=== PATIENT | male | born 1995 | race Caucasian/White ===

== ENCOUNTER 2019-11-05 15:40 | Emergency (ER) | payer SELFPAY ==
[2019-11-05 15:46] VITALS: BP 129/67
--- NOTE | 2019-11-05 16:01 | ED Physician Documentation ---
PD HPI Fall - Stated complaint Stated Complaint: RT SIDE PX - Chief complaint Chief Complaint: Trauma Ch/Bk - History obtained from History obtained from: Patient - History of Present Illness Mechanism of injury: Slipped ([place] fell and struck his right lateral ribs on the rounded part of a log. Has complained of pain in the area with coughing sneezing and deep breathing and certain movements. This was about a week ago and it still hurts.) Fall distance: Standing position Where injury occurred: Other (beach) Timing - onset: How many days ago (3) Injury(ies) location: Chest (right side lateral mid ribs) Associated symptoms: No: LOC, AMS, Weakness, Paresthesias Symptoms improve with: Other (did not try any meds). No: Ice Worsens with: Movement (he was trying to work today and hurting too much with lifting and pulling.), Palpation, Other (deep breathing) Similar symptoms before: Has not had sx before Recently seen: Not recently seen Review of Systems Constitutional: denies: Fever, Chills Nose: denies: Rhinorrhea / runny nose, Congestion Throat: denies: Sore throat Cardiac: reports: Chest pain / pressure (at injured area only). denies: Palpitations Respiratory: denies: Dyspnea, Cough GI: denies: Abdominal Pain, Nausea, Vomiting Skin: denies: Abrasion (s), Laceration (s) PD PAST MEDICAL HISTORY - Past Medical History Past Medical History: Yes Respiratory: None Neuro: None Endocrine/Autoimmune: None GI: GERD - Past Surgical History Past Surgical History: No - Present Medications Home Medications: Ambulatory Orders Medication Instructions Recorded Confirmed Hydrocodone/Acetaminophen [[place] 1 each PO Q6H PRN #20 tablet 11/05/19 5-325 Tablet] Naproxen 500 mg PO BID #20 tablet 11/05/19 - Allergies Allergies/Adverse Reactions: Allergies Allergy/AdvReac Type Severity Reaction Status Date / Time No Known Drug Allergies Allergy Verified 11/05/19 15:43 - Social History Does the pt smoke?: Yes Smoking Status: Current every day smoker Does the pt drink ETOH?: No Does the pt have substance abuse?: No Substance Use and Type: Marijuana - Immunizations Immunizations are current?: Yes - POLST Patient has POLST: No PD ED PE NORMAL - Vitals Vital signs reviewed: Yes - General General: Alert and oriented X 3, No acute distress (somewhat guarding trunk movement and deep breathing. ), Well developed/nourished - Neck Neck: Supple, no meningeal sign, No bony TTP - Cardiac Cardiac: RRR, No murmur - Respiratory Respiratory: Clear bilaterally, Other (right lateral chest tender at midaxillary area about ribs 6-8. No abrasions nor lacs. No bruising. ) - Abdomen Abdomen: Soft, Non tender Results - Vitals Vitals: Vital Signs - 24 hr 11/05/19 15:43 Temperature 36.5 C Heart Rate 50 L Respiratory 16 Rate Blood Pressure 129/67 O2 Saturation 99 - Rads (name of study) chest xray Radiology: Prelim report reviewed (lungs normal. no noted displaced fractures. ), See rad report PD MEDICAL DECISION MAKING - ED course Complexity details: reviewed results, considered differential, d/w patient Departure - Departure Disposition: 01 Home, Self Care Clinical Impression: Fall from slip, trip, or stumble Qualifiers: Encounter type: initial encounter Qualified Code(s): W01.0XXA - Fall on same level from slipping, tripping and stumbling without subsequent striking against object, initial encounter Contusion of rib Qualifiers: Encounter type: initial encounter Laterality: right Qualified Code(s): S20.211A - Contusion of right front wall of thorax, initial encounter Condition: Stable Record reviewed to determine appropriate education?: Yes Instructions: ED Contusion Rib Prescriptions: Hydrocodone/Acetaminophen [[place] 5-325 Tablet] 1 each PO Q6H PRN #20 tablet PRN Reason: Pain Naproxen 500 mg PO BID #20 tablet Comments: No rib fractures are seen on your x-ray. Bruising of the rib and chest wall can still hurt for couple of weeks. Activity as tolerated. Use an anti-inflammatory such as the naproxen 500 mg twice daily with food. To that add Tylenol 4 times a day or hydrocodone if needed for worse pain. Off work for a day or so and then light lifting in activity for a few more days to help with the pain. I would anticipate improvement over the next another week and resolution during that timeframe. Forms: Activity restrictions Discharge Date/Time: 11/05/19 17:03
[2019-11-05] MEDS ORDERED: HYDROcod/ACETAM 5/325 MG TABLET PO STA (16:13)
[2019-11-05] MEDS ORDERED: NAPROXEN 250 MG TABLET PO STA (16:13)
--- NOTE | 2019-11-05 16:49 | XRAY Report ---
Reason: fall, struck right ribs on log Procedure Date: 11/05/2019 Accession Number: [id number] / [id number] Procedure: XR - Ribs w/PA Chest RT CPT Code: Final Report FULL RESULT: PROCEDURE: Ribs w/PA Chest RT INDICATIONS: fall, struck right ribs on log TECHNIQUE: 3 views of the right ribs were acquired, along with a single view chest. COMPARISON: None FINDINGS: Surgical changes and devices: None. Bones and chest wall: No fractures or dislocations. No suspicious bony lesions. Overlying soft tissues appear unremarkable. Lungs and pleura: No pleural effusions or pneumothorax. Lungs appear clear. Mediastinum: Mediastinal contours appear normal. Heart size is normal. IMPRESSION: No gross displaced right rib fracture is seen. No acute cardiopulmonary pathology. Reviewed by: Piyush Grey MD on 11/05/2019 4:47 PM PDT Approved by: Piyush Grey MD on 11/05/2019 4:47 PM PDT Station ID: [id number]
== END 2019-11-05 17:03 | disposition home or self-care (01) ==
LOC: ED 15:40
DX: S20.211A Contusion of right front wall of thorax, initial encounter (principal); W01.198A Fall on same level from slipping, tripping and stumbling with subsequent striking against other object, initial encounter; Y93.01 Activity, walking, marching and hiking; Y92.832 Beach as the place of occurrence of the external cause; F17.200 Nicotine dependence, unspecified, uncomplicated
CPT/HCPCS: 71101; 99283; 99284; A9270

== ENCOUNTER 2022-06-08 13:15 | Emergency (ER) | payer SELFPAY ==
[2022-06-08 14:11] VITALS: BP 130/75
--- OUTSIDE RECORDS SUMMARY | 2022-06-08 14:13 | EXTERNAL MEDICAL SUMMARY RPT | Continuity of Care Document ---
:1995 Author Organization [facility] Address [address] [place] [address] Phone Allergies and Intolerances date description facility type (no date) No Known Drug Allergies [facility] (unkn own) Encounters No information. Functional Status No information. Immunizations No information. Medications No information. Problems No information. Procedures No information. Results/Labs test date author facility value unit interpret ation Result panel 1 (unknown) (no date) (unknown) (unknown) (no value) (units (un known) unknown) (unknown) (no date) (unknown) (unknown) Moderate (units (unkn own) growth - unknown) Mixed [facility] Result panel 2 (unknown) (no date) (unknown) (unknown) (no value) (units (un known) unknown) (unknown) (no date) (unknown) (unknown) Moderate (units (unkn own) growth - unknown) Mixed [facility] Social History No information. Vital Signs No information.
--- NOTE | 2022-06-08 15:06 | XRAY Report ---
PROCEDURE: Finger(s) RT INDICATIONS: Trauma TECHNIQUE: AP hand, 2 views of the third finger(s) acquired. COMPARISON: None. FINDINGS: Bones: No fractures or dislocations. No suspicious bony lesions. Soft tissues: No suspicious soft tissue calcifications. No radiopaque foreign body. IMPRESSION: No acute osseous abnormality. No radiopaque foreign body. Reviewed by: Teofilo Dai MD on 06/08/2022 3:05 PM [facility] Approved by: Teofilo Dai MD on 06/08/2022 3:05 PM [facility] Station ID: [id number]
== END 2022-06-08 15:36 | disposition left against medical advice (07) ==
LOC: ED 13:15
DX: Z53.21 Procedure and treatment not carried out due to patient leaving prior to being seen by health care provider (principal)